=== PATIENT | male | born 1980 | race African-American/Black ===

== ENCOUNTER 2021-08-03 19:19 | Emergency (ER) | payer OTHER ==
[~2021-08-03] VITALS: Ht 190.5 cm; Wt 106.6 kg
[2021-08-03 20:01] LABS: ABSOLUTE NEUTROPHILS 8.8 thou/uL (1.4-8.2); BASOPHILS 0.4 % (0.0-2.0); HEMATOCRIT 38.8 % (42.0-52.0); HEMOGLOBIN 13.6 gm/dL (14.0-18.0); LYMPHOCYTES 10.4 % (24.0-44.0); MCH 30.4 pg (26.0-34.0); MCV 86.7 fL (80.0-100.0); MONOCYTES 10.9 % (1.0-8.0); PLATELET COUNT 365 thou/uL (150-400); POLYS 78.3 % (36.0-66.0); RBC 4.48 mil/uL (4.50-6.00); RDW 16.4 % (10.5-14.5); WBC 11.2 thou/uL (4.0-11.0)
[2021-08-03 20:14] LABS: ANION GAP 17 mmol/L (7-16); BUN 9 mg/dL (7-18); CALCIUM 9.3 mg/dL (8.5-10.1); CHLORIDE 94 mmol/L (98-107); CO2 23 mmol/L (21-32); GLUCOSE 115 mg/dL (74-106); SODIUM 134 mmol/L (136-145)
[2021-08-03 20:18] LABS: ALBUMIN 3.9 g/dL (3.4-5.0); SALICYLATE < 2.8 mg/dL (2.8-20.0); SGOT 129 U/L (15-37); SGPT 74 U/L (16-63); TOTAL BILIRUBIN 0.9 mg/dL (0.2-1.0); TOTAL PROTEIN 8.2 g/dL (6.4-8.2)
[2021-08-03 21:49] LABS: URINE BILIRUBIN NEGATIVE (Negative); URINE BLOOD TRACE (Negative); URINE CLARITY CLEAR; URINE COLOR YELLOW; URINE GLUCOSE-RANDOM* NEGATIVE (Negative); URINE KETONES TRACE (Negative); URINE LEUKOCYTES-REFLEX NEGATIVE (Negative); URINE NITRITE-REFLEX NEGATIVE (Negative); URINE PROTEIN (DIPSTICK) TRACE (Negative); URINE SPECIFIC GRAVITY <= 1.005 (1.005-1.035)
[2021-08-03 21:57] LABS: AMP/METHAMP Negative (Negative); BARBITURATES Negative (Negative); BENZODIAZEPINES Negative (Negative); COCAINE Negative (Negative); METHADONE Negative (Negative); OPIATES Negative (Negative); PCP Negative (Negative)
[2021-08-04] MEDS ORDERED: ZYPREXA5 MG PO (05:34)
[2021-08-04 06:30] VITALS: BP 140/60
--- NOTE | 2021-08-04 07:18 | EKG ---
[address] [place] [address] ELECTROCARDIOGRAM REPORT Name: MARYLOU GARCIAIC [id number] Admission: 08/03/21 Attend Phys: Discharge: Date of : 78 Report #: [id number] [facility] ED Test Date: 2021-08-04 Test Time: 01:43:05 Pat Name: TY GARCIA Department: Room: Gender: [employer]: FARTUN : 1980 Requested By: Sherwin Donaldson Order Number: [id number] MD: Delroy King Measurements Intervals [place] Rate: 94 P: 69 WI: 175 QRS: -21 QRSD: 91 T: 58 QT: 426 QTc: 533 Interpretive Statements Sinus rhythm Probable left atrial enlargement Borderline left axis deviation Abnormal R-wave progression, early transition Prolonged QT interval No previous ECG available for comparison Electronically Signed On 08-04-2021 7:18:23 DOCK COORDINATOR by Delroy King [email or web address] <ELECTRONICALLY SIGNED> By: Delroy King MD, [facility] 08/04/21 0718 0143 [id number] Delroy King MD, FACC /EPI
== END 2021-08-04 06:30 | disposition home or self-care (01) ==
LOC: ER 19:19
PROVIDERS: Physician Assistant
DX: F22 Delusional disorders (principal); Z20.822 Contact with and (suspected) exposure to COVID-19; F10.129 Alcohol abuse with intoxication, unspecified; Y90.9 Presence of alcohol in blood, level not specified